=== PATIENT | male | born 1945 | race Caucasian/White ===

== ENCOUNTER 2017-04-04 11:16 | Inpatient (IN) | payer OTHER ==
[~2017-04-04] VITALS: Ht 152.4 cm; Wt 102.1 kg
--- NOTE | ~2017-04-04 | HC ---
[facility] [place] [address] CONSULTATION Name: DEMAR FARMER Room #: 512-P [facility] IN M.R.#: [id number] Admission: 04/04/17 Attend Phys: Nikolai Bright MD Discharge: 04/04/17 Date of : 43 Report #: [id number] THIS REPORT FOR: //name// CC: Nikolai Bright [facility] physician/PCP HISTORY OF PRESENT ILLNESS: The patient is a 71-year-old white male who was transferred to the acute inpatient rehab rice yesterday, April 04, after an extended hospitalization at [facility] after a hemorrhage stroke. He apparently was driving his granddaughter on 03/15/2017, when she notes he was having confusion, weakness, and slurred speech. He was transferred to the emergency room and found to have an intracranial bleed with hypertensive emergency. He was subsequently intubated, noted to have dense right-sided flaccidity with altered mental status. He apparently was having good days and bed days and was starting to work in therapies. He had achieved to the point where he was sitting at the edge of the bed for over 20 minutes with mod assist and he was getting out of bed to the light chair with max assist of 2. He also had started swallowing and was on a pureed honey thickened liquid diet. His family lives in the [facility] area and desire to have the patient transferred to this area for rehabilitation. He was transferred to the acute inpatient rehab rice here at [facility] after an approximately 6-hour car ride. Upon assessment by the hospitalist service right after admission, he was noted to be limited as far as responsiveness with altered mental status. There was concern regarding pneumonia. With his altered mental status, he was kept n.p.o. With continued poor responsiveness, he has now been transferred off the acute inpatient rehab rice and is currently on the monitored bed, being further evaluated by neurology. PAST MEDICAL HISTORY: Includes diabetes mellitus, hypertension, recent intracranial hemorrhage, grade 2 diastolic dysfunction, and moderate aortic stenosis. PAST SURGICAL HISTORY: Includes cholecystectomy. ALLERGIES: No known drug allergies. MEDICATIONS: Please see the current medication listing. Each of these was individually reconciled upon admission. The list includes medications [id number]-anfglch, supplements, etc. SOCIAL HISTORY: He lives in [place] by himself. There are family members including a daughter and granddaughter that will be staying with him. He had been previously independent. FAMILY HISTORY: Significant for CVA in his mother. REVIEW OF SYSTEMS: Unobtainable. [address] [address] CONSULTATION Name: DEMAR FARMER Room #: 512-P [facility] IN M.R.#: [id number] Admission: 04/04/17 Attend Phys: Nikolai Bright MD Discharge: 04/04/17 Date of : 43 Report #: [id number] PHYSICAL EXAMINATION: GENERAL: Revealed a somnolent male, in no obvious distress. He is currently being seen in the progressive care unit. VITAL SIGNS: Temperature 97.7, pulse 77, respirations 16, and blood pressure 139/55. HEENT: His head is turned to the right. NEUROLOGIC: He would not respond to me even with sternal rub, although if I opened his eyes, he would appear to track. He did not verbalize for me. EXTREMITIES: He has functional range of motion of the right upper and right lower extremity, but has flaccid tone. Left upper and left lower extremity revealed more normal tone. I was unable to assess sensation There is no focal calf swelling. After I evaluated him, his family members came in and approached him from the left side and said hello. He then was able to turn his head to the left and look at them. His eyes opened and he was able to verbalize several statements, although I could not make out what he was saying. He was able to hold his daughters left hand and could grasp her with his left hand. ASSESSMENT: 1. Large left intraparenchymal hemorrhagic stroke. 2. Dense right hemiplegia. 3. Dysphagia. He was on purred honey, although he is currently being held to n.p.o. Speech therapy is involved. 4. Mental status changes. He was transferred off the acute inpatient rehab rice and neuro was further assessing at this time. 5. Diabetes mellitus. 6. Hypertension. 7. Grade 2 diastolic dysfunction. 8. Moderate aortic stenosis. PLAN: As above. He is undergoing further evaluation and we will follow along to see how he does. If he demonstrates the tolerance for an acute rehab level of services, we could consider transferring him back up to rehab. At this point, we will need to follow along and see how he does. By: 1110 1249 Nikolai Bright MD /nt
--- NOTE | ~2017-04-04 | D ---
[facility] [place] [address] DISCHARGE SUMMARY Name: DEMAR FARMER Room #: 512-P [facility] IN M.R.#: [id number] Admission: 04/04/17 Attend Phys: Nikolai Bright MD Discharge: 04/04/17 Date of : 43 Report #: [id number] THIS REPORT FOR: //name// CC: Nikolai Bright [facility] physician/PCP DATE OF SERVICE: 04/04/2017 Please see my prior history and physical dictated today. The patient has been discharged off the acute inpatient rehab rice. DISCHARGE DIAGNOSES: Include: 1. Large left intraparenchymal hemorrhage. 2. Dense right hemiplegia. 3. Dysphagia. 4. Mental status changes. 5. Diabetes mellitus. 6. Hypertension. 7. Grade 2 diastolic dysfunction. 8. Moderate aortic stenosis. Discharge medications and activity level, etc. all as per the accepting service. We will be glad to follow along and see how he does with therapies. If he has the appropriate tolerance, he may be a candidate to return back for an acute inpatient rehab stay. We will follow along with you. By: 1114 1151 Nikolai Bright MD /nt
[2017-04-04 15:00] VITALS: BP 123/79
[2017-04-04] MEDS ORDERED: FEVERALL120 MG PO (15:48)
[2017-04-04] MEDS ORDERED: NORVASC2.5 MG PO (15:50)
[2017-04-04] MEDS ORDERED: COREG25 MG PO (16:09)
[2017-04-04] MEDS ORDERED: PEPCID20 MG PO (16:10)
[2017-04-04] MEDS ORDERED: HYDRALAZINE 2525 MG PO ×2 (16:13→16:17)
[2017-04-04] MEDS ORDERED: NOVOLOG100 UNIT/1 SUBQ (16:41)
[2017-04-04 16:55] LABS: HEMATOCRIT 42.5 % (42.0-52.0); HEMOGLOBIN 14.1 gm/dL (14.0-18.0); MCH 29.4 pg (26.0-34.0); MCHC 33.1 g/dL (28.0-37.0); MCV 88.7 fL (80.0-100.0); RBC 4.79 mil/uL (4.50-6.00); RDW 13.7 % (10.5-14.5); WBC 10.2 thou/uL (4.0-11.0)
[2017-04-04 17:01] LABS: ABG SAMPLE TYPE ARTERIAL; BE(vivo) 0.4 mmol/L (-2 to +3); HCO3 24.8 mmol/L (22.0-26.0); LACTATE 0.93 mmol/L (0.5-2.0); O2(CT) 17.7 mL/dL (15.0-23.0); O2Hb 88.8 % (92.0-98.0); PCO2 39.4 mmHg (35.0-45.0); PO2 60.5 mmHg (80.0-100.0); pH 7.417 (7.360-7.450); sO2 91.7 % (92.0-98.0)
[2017-04-04 17:02] LABS: ABG COMMENT NO COMPLICATIONS.; STICK SITE R.RADIAL
[2017-04-04 17:12] LABS: CREATININE 1.3 mg/dL (0.7-1.3); POTASSIUM 4.6 mmol/L (3.5-5.1)
[2017-04-04] MEDS ORDERED: LEVEMIR100 UNIT/1 SUBQ (17:23)
[2017-04-04] MEDS ORDERED: KEPPRA 500 MG500 M1 PO (17:23)
[2017-04-04] MEDS ORDERED: ZESTRIL20 MG PO (17:24)
[2017-04-04] MEDS ORDERED: ALDACTONE25 MG PO (17:25)
[2017-04-05] MEDS ORDERED: TRANSDERM-SCO1 PATC1 TD (02:39)
== END 2017-04-04 23:30 | disposition short-term general hospital (02) | DRG 64 ==
PROVIDERS: Hospitalist
DX: I61.9 Nontraumatic intracerebral hemorrhage, unspecified (principal); G93.40 Encephalopathy, unspecified; G81.91 Hemiplegia, unspecified affecting right dominant side; E11.9 Type 2 diabetes mellitus without complications; I10 Essential (primary) hypertension; R13.10 Dysphagia, unspecified; I35.0 Nonrheumatic aortic (valve) stenosis; Z90.49 Acquired absence of other specified parts of digestive tract; Z87.442 Personal history of urinary calculi; Z82.3 Family history of stroke
CPT/HCPCS: 10112

== ENCOUNTER 2017-04-04 23:34 | Inpatient (IN) | payer OTHER ==
[~2017-04-04] VITALS: Ht 167.6 cm; Wt 102.3 kg
--- NOTE | ~2017-04-04 | 2DMMODE ---
[facility] [address] [facility] [place] [address] 2 D/M-MODE ECHOCARDIOGRAM Name: DEMAR FARMER Room #: 213-P ADM IN M.R.#: [id number] Admission: 04/04/17 Attend Phys: Jelani Forrest, Discharge: Date of : 43 Date of Service: 04/07/17 0848 Report #: [id number] THIS REPORT FOR: //name// APPROVED REPORT Study performed: 04/07/2017 06:34:47 EXAM: Comprehensive 2D, Doppler, and color-flow Echocardiogram Patient Location: Bedside Room #: 213 Status: routine Other Information Study Quality: Adequate Technically limited study due to no patient participation, limited mobility and body habitus. Indications Cardiomegaly, rule out CHF. Hx: CVA, DM, HTN 2D Dimensions RVDd: 27.03 mm LVEF(%): 54.02 (>50%) IVSd: 15.41 (7-11mm) LVOT Diam: 22.42 (18-24mm) LVDd: 43.88 mm PWd: 13.74 (7-11mm) Ascending Ao: 38.26 (22-36mm) LVDs: 31.71 (25-40mm) Aortic Root: 31.30 mm Mcdonough's LVEF: 54.02 % Volumes Left Atrial Volume (Systole) Single Plane 4CH: 62.12 mL Single Plane 2CH: 61.50 mL LA ESV Index: 32.00 mL/m2 Aortic Valve AoV Peak Jackson.: 2.51 m/s AO Peak Gr.: 25.27 mmHg AO Mean Gr.: 15.21 mmHg AO V2 Mean: 1.91 m/s AO V2 VTI: 45.67 cm Mitral Valve E/A Ratio: 0.8 MV Decel. Time: 103.72 ms MV E Max Jackson.: 1.01 m/s [facility] [place] [address] 2 D/M-MODE ECHOCARDIOGRAM Name: DEMAR FARMER Room #: 213-P [facility] IN .R.#: [id number] Admission: 04/04/17 Attend Phys: Jelani Forrest, Discharge: Date of : 43 Date of Service: 04/07/17 0848 Report #: [id number] A Jackson.: 1.24 m/s MV PHT: 30.08 ms Pulmonary Valve PV Peak Jackson.: 1.29 m/s PV Peak Gr.: 6.68 mmHg Left Ventricle The left ventricle is normal size. Systolic anterior motion of the mitral valve causing a gradient. Peak velocity is noted to be 4.3m/s with and PPG of 75mmHg. There is normal LV segmental wall motion. Moderate concentric left ventricular hypertrophy. Left ventricular systolic function is hyperdynamic LVEF is 65-70%. Grade I - abnormal relaxation pattern. Right Ventricle The right ventricle is normal size. The right ventricular systolic function is normal. Atria Left atrium is mildly dilated. The right atrium size is normal. Aortic Valve Aortic valve is calcified. No aortic regurgitation is present. Probable mild aortic stenosis (Peak gradient 21, mean 10). Mitral Valve Mitral valve leaflets are mildly calcified. Mild mitral annular calcification. Probable systolic anterior motion of the mitral valve with LVOT (70mmHg) gradient. Moderate mitral regurgitation. No evidence of mitral valve stenosis. Tricuspid Valve The tricuspid valve is normal in structure. There is no tricuspid valve regurgitation noted. Pulmonic Valve Pulmonic valve is not well visualized. Great Vessels The aortic root is normal in size. The ascending aorta is mildly dilated. IVC is not well visualized. Pericardium There is no pericardial effusion. [address] [address] 2 D/M-MODE ECHOCARDIOGRAM Name: DEMAR FARMER Room #: 213-P [facility] IN .#: [id number] Admission: 04/04/17 Attend Phys: Jelani Forrest, Discharge: Date of : 43 Date of Service: 04/07/17 0848 Report #: [id number] <Conclusion> Left ventricular systolic function is hyperdynamic There is normal LV segmental wall motion. Moderate concentric left ventricular hypertrophy. LVEF is 65-70%. Aortic valve is calcified. Probable mild aortic stenosis (Peak gradient 21, mean 10). Mild mitral annular calcification. Probable systolic anterior motion of the mitral valve with LVOT (70mmHg) gradient. Moderate mitral regurgitation. Pulmonary artery pressure could not be reliably ascertained There is no pericardial effusion. <ELECTRONICALLY SIGNED> By: Orlando Ferreira MD, [facility] 04/07/17847 7 7 Orlando Ferreira MD, FAC /INF
--- NOTE | ~2017-04-04 | EEG ---
[facility] [place] [address] ELECTROENCEPHALOGRAM Name: DEMAR FARMER Room #: 203-P ADM IN M.R.#: [id number] Admission: 04/04/17 Attend Phys: Jelani Forrest MD Discharge: Date of : 43 Report #: [id number] THIS REPORT FOR: //name// CC: Jelani Forrest [facility] physician/PCP DATE OF SERVICE: 04/05/2017 This patient is being evaluated for altered mental status. EEG was done by placing the electrodes by standard 10-20 system of electrode placement. Both referential and sequential montages were used for recording. Background activity in this patient's EEG is about 8 Hz and 15 microvolts. This is a symmetrical activity. It is intermixed with theta range slowing on both sides. Photic stimulation is unremarkable. IMPRESSION: This patient's EEG is intermixed with theta range slowing on both sides. That is a nonspecific abnormality, which can occur with encephalopathy, effect of psychotropic medication, dementia, etc. Clinical correlation is recommended. Thank you very much for this referral. <ELECTRONICALLY SIGNED> By: Jose Terrazas MD 04/10/17 1246 1826 1847 Jose Terrazas MD /nt
--- NOTE | ~2017-04-04 | H ---
[facility] [place] [address] HISTORY AND PHYSICAL Name: DEMAR FARMER Room #: 203-P [facility] IN M.R.#: [id number] Admission: 04/04/17 Attend Phys: Jelani Forrest MD Discharge: 04/13/17 Date of : 43 Report #: [id number] THIS REPORT FOR: //name// CC: Jelani Forrest [facility] physician/PCP DATE OF SERVICE: 04/04/2017 ATTENDING PHYSICIAN: Moises Frazier M.D. PRIMARY CARE PHYSICIAN: Unknown. CHIEF COMPLAINT: Altered mental status. HISTORY OF PRESENT ILLNESS: The patient is a 71-year-old male who was just transferred to acute rehabilitation at [facility] on April 04 after an extended hospitalization at [facility] after a hemorrhagic stroke. Apparently on 03/15/2017, he was driving with his granddaughter when she noticed he was having confusion, weakness and slurred speech. He was transferred to the ER and was found to have an intracranial bleed with hypertensive emergency. He subcutaneously was intubated and was seen by pulmonary, neurosurgery and cardiology. He does have residual right-sided flaccidity and altered mental status. According to his family, he had been having good and bad days and sometimes would be very lethargic at times but apparently was back to starting to work with therapies. He did have a swallow evaluation at one point there, which showed deep penetration with nectar-thick consistency. There was no aspiration identified and he was placed on a pureed diet with honey liquids. When he arrived here earlier during the day, he was quite lethargic after his traveling from [place]. Once the shift nurse manager was on, she could not arouse him in any way including to sternal rub and this was apparently different from his baseline; therefore, he was transferred back to inpatient at [facility]. There are no reports that he has been having any fevers. He remains very somnolent and unable to answer any questions and will not follow any commands. He did moan when being transferred from bed to bed. A stat head CT was done, which did not show any acute changes but showed that his left intraparenchymal hemorrhage was stable. PAST MEDICAL HISTORY: Diabetes, hypertension, recent intracranial hemorrhage, grade 2 diastolic dysfunction and moderate aortic stenosis. PAST SURGICAL HISTORY: Cholecystectomy. ALLERGIES: No known drug allergies. HOME MEDICATIONS: Hydralazine 25 mg p.o. q. 6 hours p.r.n. and 50 mg t.i.d., carvedilol 25 mg b.i.d., amlodipine 7.5 mg q. 8 hours, lisinopril 20 mg b.i.d., [facility] [address] [place] [address] HISTORY AND PHYSICAL Name: DEMAR FARMER Room #: 203-P [facility] IN M.R.#: [id number] Admission: 04/04/17 Attend Phys: Jelani Forrest MD Discharge: 04/13/17 Date of : 43 Report #: [id number] spironolactone 12.5 mg b.i.d., Tylenol p.r.n., Keppra 500 mg b.i.d., scopolamine patch q. 72 hours, famotidine 20 mg b.i.d., Levemir insulin 12 units at bedtime and NovoLog insulin sliding scale. SOCIAL HISTORY: This is unknown. Apparently, he was in [place] visiting his daughter when his stroke occurred. His records showed that he does have a history of tobacco abuse but no drug use. He is a full code. FAMILY HISTORY: Significant for CVA in his mother. REVIEW OF SYSTEMS: According to the transfer records, he did have an echo in [place] as well, which showed a normal EF of greater than 70% with moderate concentric hypertrophy of the left ventricle. There was pseudonormalization and relaxed pattern with grade 2 diastolic dysfunction. There was moderate aortic valve stenosis and jyhe-pm-oonrxybs mitral valve regurgitation. His Dopplers of lower extremities were negative for DVT and video swallow was done as above. PHYSICAL EXAMINATION: GENERAL: The patient is a somnolent male, in no acute distress. VITAL SIGNS: Temperature is 36.9, heart rate 85, respirations 16, blood pressure is 141/82 and oxygen 91% on room air. HEENT: PERRLA. The patient will not track with his eyes. Sclerae are nonicteric. Oral mucosa is pink and dry. He has a somewhat brownish coating on his tongue. NECK: Supple. No JVD noted. CARDIAC: Normal S1 and S2 with a 3/6 systolic ejection murmur. RESPIRATORY: Breath sounds are clear, bilateral upper lobes. He is diminished in both bases. Breathing is nonlabored. He is snoring. ABDOMEN: Obese, round, nontender and nondistended with positive bowel sounds. VASCULAR: 1+ bilateral lower extremity edema. Pedal pulses are 2+. NEUROLOGICAL: The patient is somnolent and unarousable. He will open his eyes to sound or pain. He will not track with his eyes when they are opened. He is nonverbal. He will not answering any questions. He is completely flaccid on the right side, he did have some withdrawal to pain on his left arm and leg. SKIN: Intact except for a scabbed over area on his left forearm, which looks like a recent IV infiltration. LABORATORY DATA AND DIAGNOSTICS: Labs drawn on April 04 here show a WBC of 10.2, hemoglobin 14.1 and platelets 185. Sodium 140, potassium 4.6, BUN 30, creatinine 1.3, glucose 174 and ammonia was 25. ABG showed a pH of 7.42, pCO2 of 39.4, pO2 of 60.5, bicarbonate 24.8 and lactate is 0.93. RADIOLOGICAL DATA: Chest x-ray showed a right upper lobe and left lower lobe infiltrate. CT of the head showed a stable intraparenchymal hemorrhage consistent with hypertensive hemorrhagic infarct. There was some edema with mass effect on the left lateral ventricle but no herniation. [facility] [address] [place] [address] HISTORY AND PHYSICAL Name: DEMAR FARMER Room #: 203-P [facility] IN .R.#: [id number] Admission: 04/04/17 Attend Phys: Jelani Forrest MD Discharge: 04/13/17 Date of : 43 Report #: [id number] ASSESSMENT AND PLAN: 1. Altered mental status. This may be due to his recent travel from [place] yesterday as well as due to his recent stroke as he may be having some good and bad days. CT of the head did not show any new findings. So far his initial workup did reveal some possible pneumonia, which we will be treating as well. Since he is not alert and follow any commands, we will keep him n.p.o. until speech is able to see him. There has not been any seizure activity seen but this may also be a concern since we will consult neurology. 2. Pneumonia. He is currently afebrile without any leukocytosis. There is concern for aspiration since this is on the right side. We will add Zosyn and check blood cultures and await further speech therapy recommendations. Start some breathing treatments. 3. Recent hemorrhage cerebrovascular accident. Again, neurology will be consulted. We will keep him n.p.o. He will still need to have extensive physical therapy, occupational therapy and speech therapy and acute rehabilitation at some point. 4. Diabetes, add sliding scale insulin with Accu-Chek q. 6 hours while n.p.o. 5. Hypertension. Blood pressure is stable. We will add hydralazine p.r.n. while he is n.p.o. and hold home p.o. medications. 6. Recent acute respiratory failure status plus intubation. He is maintaining his oxygen saturation. Continue to monitor. 7. Grade 2 diastolic dysfunction with moderate aortic stenosis. No signs of acute fluid overload. Continue to monitor. 8. Deep venous thrombosis prophylaxis, place sequential compression devices. We will continue to follow the patient closely throughout the hospitalization and make changes based on clinical status. <ELECTRONICALLY SIGNED> By: RODRÍGUEZ Holloway 04/14/17 0442 [id number] 0823 RODRÍGUEZ Holloway /nt
[~2017-04-04 23:34] MED LIST: ALDACTONE25 MG PO; COREG25 MG PO; FEVERALL120 MG PO; HYDRALAZINE 2525 MG PO; KEPPRA 500 MG500 M1 PO; LEVEMIR100 UNIT/1 SUBQ; NORVASC2.5 MG PO; NOVOLOG100 UNIT/1 SUBQ; PEPCID20 MG PO; ZESTRIL20 MG PO
[2017-04-04 23:57] VITALS: BP 141/82
[2017-04-05 02:31] LABS: URINE BILIRUBIN NEGATIVE (Negative); URINE BLOOD NEGATIVE (Negative); URINE COLOR YELLOW; URINE GLUCOSE-RANDOM* NEGATIVE (Negative); URINE KETONES NEGATIVE (Negative); URINE NITRITE NEGATIVE (Negative); URINE PROTEIN (DIPSTICK) 1+ (Negative); URINE SPECIFIC GRAVITY >= 1.030 (1.003-1.035)
[2017-04-05] MEDS ORDERED: TRANSDERM-SCO1 PATC1 TD (02:39)
[2017-04-05 02:42] LABS: BACTERIA None Seen /HPF (None Seen); CASTS None Seen /LPF (None Seen); CRYSTALS None Seen /LPF (None Seen); FINE GRANULAR CASTS 0-3 Few /LPF (None Seen); HYALINE CASTS 0-3 Few /LPF (None Seen); SQUAMOUS None Seen /LPF (0-3); URINE RBC None Seen /HPF (0-2); URINE WBC 0-5 Rare /HPF (0-5)
[2017-04-05 04:26] VITALS: BP 127/73
[2017-04-05 07:23] LABS: TC:HDL 6.1 Ratio (Not establshd)
[2017-04-05 07:56] VITALS: BP 139/55
[2017-04-05 08:14] LABS: FOLIC ACID 12.7 ng/mL (8.6-58.9)
[2017-04-05 13:07] VITALS: BP 158/87
[2017-04-05 14:11] LABS: FREE T4 1.41 ng/dL (0.82-1.77)
[2017-04-05 15:16] VITALS: BP 144/78
[2017-04-05 19:40] VITALS: BP 154/96
[2017-04-06 03:51] VITALS: BP 173/107
[2017-04-06 05:10] LABS: GLYCOHEMOGLOBIN (HGB A1C) 7.7 % (4.8-5.6)
[2017-04-06 06:11] LABS: HEMATOCRIT 42.5 % (42.0-52.0); HEMOGLOBIN 14.1 gm/dL (14.0-18.0); MCH 28.9 pg (26.0-34.0); MCHC 33.1 g/dL (28.0-37.0); MCV 87.5 fL (80.0-100.0); RBC 4.86 mil/uL (4.50-6.00); RDW 13.7 % (10.5-14.5); WBC 12.6 thou/uL (4.0-11.0)
[2017-04-06 06:30] LABS: ALBUMIN 2.7 g/dL (3.4-5.0); CREATININE 1.4 mg/dL (0.7-1.3); POTASSIUM 4.4 mmol/L (3.5-5.1); TOTAL PROTEIN 6.3 g/dL (6.4-8.2)
[2017-04-06 07:19] VITALS: BP 249/117
[2017-04-06 08:30] VITALS: BP 140/95
[2017-04-06 12:22] VITALS: BP 202/117
[2017-04-06 15:35] VITALS: BP 193/101
[2017-04-06 20:08] VITALS: BP 162/96
[2017-04-07 04:08] VITALS: BP 132/92
[2017-04-07 06:54] LABS: HEMATOCRIT 39.1 % (42.0-52.0); HEMOGLOBIN 12.9 gm/dL (14.0-18.0); MCH 28.9 pg (26.0-34.0); MCHC 33.1 g/dL (28.0-37.0); MCV 87.4 fL (80.0-100.0); RBC 4.47 mil/uL (4.50-6.00); RDW 14.2 % (10.5-14.5); WBC 11.8 thou/uL (4.0-11.0)
[2017-04-07 07:02] LABS: CALCIUM 8.9 mg/dL (8.5-10.1); CREATININE 2.1 mg/dL (0.7-1.3); POTASSIUM 3.7 mmol/L (3.5-5.1)
[2017-04-07 07:50] VITALS: BP 194/104
[2017-04-07 11:44] VITALS: BP 133/69
[2017-04-07 13:13] LABS: ALPHA TOCOPHEROL 12.4 mg/L (5.3-17.5)
[2017-04-07 16:09] VITALS: BP 143/93
[2017-04-07 19:51] VITALS: BP 143/78
[2017-04-07 23:50] VITALS: BP 142/75
[2017-04-08 03:57] VITALS: BP 124/60
[2017-04-08 04:18] LABS: HEMOGLOBIN 11.7 gm/dL (14.0-18.0); MCH 29.4 pg (26.0-34.0); MCHC 33.4 g/dL (28.0-37.0); MCV 88.1 fL (80.0-100.0); RBC 3.97 mil/uL (4.50-6.00); RDW 13.9 % (10.5-14.5); WBC 8.6 thou/uL (4.0-11.0)
[2017-04-08 04:48] LABS: CALCIUM 8.3 mg/dL (8.5-10.1); CREATININE 1.6 mg/dL (0.7-1.3); POTASSIUM 3.4 mmol/L (3.5-5.1); TOTAL BILIRUBIN 0.7 mg/dL (<0.1-1.0); TOTAL PROTEIN 5.6 g/dL (6.4-8.2)
[2017-04-08 07:43] VITALS: BP 128/55
[2017-04-08 11:19] VITALS: BP 166/84
[2017-04-08 11:50] VITALS: BP 153/80
[2017-04-08 15:08] VITALS: BP 159/81
[2017-04-08 20:06] VITALS: BP 157/98
[2017-04-09 04:43] VITALS: BP 169/91
[2017-04-09 06:09] LABS: HEMATOCRIT 35.8 % (42.0-52.0); HEMOGLOBIN 12.1 gm/dL (14.0-18.0); MCH 29.3 pg (26.0-34.0); MCHC 33.8 g/dL (28.0-37.0); MCV 86.5 fL (80.0-100.0); RBC 4.14 mil/uL (4.50-6.00); RDW 13.9 % (10.5-14.5); WBC 8.4 thou/uL (4.0-11.0)
[2017-04-09 06:19] LABS: CALCIUM 8.4 mg/dL (8.5-10.1); CREATININE 1.4 mg/dL (0.7-1.3); POTASSIUM 3.2 mmol/L (3.5-5.1)
[2017-04-09 07:14] VITALS: BP 143/98
[2017-04-09 11:37] VITALS: BP 153/90
[2017-04-09 20:32] VITALS: BP 128/89
[2017-04-10] VITALS (9 sets, daily range): BP systolic 137–195; BP diastolic 77–117
[2017-04-10 06:09] LABS: HEMATOCRIT 36.9 % (42.0-52.0); HEMOGLOBIN 12.5 gm/dL (14.0-18.0); MCH 29.3 pg (26.0-34.0); MCHC 33.8 g/dL (28.0-37.0); MCV 86.8 fL (80.0-100.0); RBC 4.25 mil/uL (4.50-6.00); WBC 8.7 thou/uL (4.0-11.0)
[2017-04-10 06:30] LABS: ALBUMIN 2.2 g/dL (3.4-5.0); CALCIUM 8.6 mg/dL (8.5-10.1); CREATININE 1.3 mg/dL (0.7-1.3); PHOSPHORUS 2.2 mg/dL (2.5-4.9); POTASSIUM 3.1 mmol/L (3.5-5.1)
[2017-04-11] VITALS (8 sets, daily range): BP systolic 149–184; BP diastolic 86–110
[2017-04-11 05:24] LABS: HEMATOCRIT 37.6 % (42.0-52.0); HEMOGLOBIN 12.9 gm/dL (14.0-18.0); MCH 29.3 pg (26.0-34.0); MCHC 34.2 g/dL (28.0-37.0); MCV 85.8 fL (80.0-100.0); RBC 4.39 mil/uL (4.50-6.00); RDW 14.2 % (10.5-14.5)
[2017-04-11 05:38] LABS: ALBUMIN 2.3 g/dL (3.4-5.0); CALCIUM 8.9 mg/dL (8.5-10.1); CREATININE 1.1 mg/dL (0.7-1.3); PHOSPHORUS 2.5 mg/dL (2.5-4.9); POTASSIUM 3.3 mmol/L (3.5-5.1)
[2017-04-11 09:26] LABS: ABG SAMPLE TYPE ARTERIAL; BE(vivo) 1.4 mmol/L (-2 to +3); HCO3 24.1 mmol/L (22.0-26.0); LACTATE 1.09 mmol/L (0.5-2.0); O2(CT) 17.2 mL/dL (15.0-23.0); PCO2 32.3 mmHg (35.0-45.0); PO2 61.8 mmHg (80.0-100.0); STICK SITE L.BRACHIAL; pH 7.491 (7.360-7.450); sO2 93.6 % (92.0-98.0); tCO2 25.1 mmol/L (24.0-30.0)
[2017-04-12 04:53] VITALS: BP 143/76
[2017-04-12 04:55] LABS: ABSOLUTE NEUTROPHILS 5.3 thou/uL (1.4-8.2); BASOPHILS 0.5 % (0.0-2.0); HEMATOCRIT 35.2 % (42.0-52.0); LYMPHOCYTES 16.7 % (24.0-44.0); MCH 29.5 pg (26.0-34.0); MCHC 34.1 g/dL (28.0-37.0); MCV 86.5 fL (80.0-100.0); MONOCYTES 7.2 % (1.0-8.0); PLATELET COUNT 177 thou/uL (150-400); POLYS 63.6 % (36.0-66.0); RBC 4.07 mil/uL (4.50-6.00); RDW 13.8 % (10.5-14.5); WBC 8.4 thou/uL (4.0-11.0)
[2017-04-12 05:07] LABS: MANUAL DIFF NO
[2017-04-12 05:16] LABS: CALCIUM 8.6 mg/dL (8.5-10.1); CREATININE 1.2 mg/dL (0.7-1.3); MAGNESIUM 1.8 mg/dL (1.8-2.4); POTASSIUM 3.5 mmol/L (3.5-5.1)
[2017-04-12 07:20] VITALS: BP 158/98
[2017-04-12 11:40] VITALS: BP 158/98
[2017-04-12 15:50] VITALS: BP 196/117
[2017-04-12 19:21] VITALS: BP 165/112
[2017-04-12 21:53] VITALS: BP 125/74
[2017-04-13 03:34] VITALS: BP 148/85
[2017-04-13 08:25] VITALS: BP 156/88
[2017-04-13 11:34] VITALS: BP 149/91
[2017-04-13] MEDS ORDERED: DUONEB 2.5-0.5 M3 ML INH (13:59)
[2017-04-13] MEDS ORDERED: LIPITOR10 MG PO (13:59)
[2017-04-13] MEDS ORDERED: AMOX TR-K CLV1 EAC3 PO (14:04)
[2017-04-13] MEDS ORDERED: NORVASC10 MG PO (14:04)
[2017-04-13] MEDS ORDERED: LEVEMIR100 UNIT/1 SUBQ (14:18)
== END 2017-04-13 19:56 | DRG 177 ==
LOC: 2N 23:34
PROVIDERS: Hospitalist; Internal Medicine; Nurse Practitioner Acute Care; Psychiatry & Neurology Neurology
PROC: 02HV33Z Insertion of Infusion Device into Superior Vena Cava, Percutaneous Approach (ICD-10-PCS; principal; 2017-04-05)
DX: J69.0 Pneumonitis due to inhalation of food and vomit (principal); G93.41 Metabolic encephalopathy; N17.9 Acute kidney failure, unspecified; G81.91 Hemiplegia, unspecified affecting right dominant side; I16.1 Hypertensive emergency; I62.9 Nontraumatic intracranial hemorrhage, unspecified; E11.9 Type 2 diabetes mellitus without complications; I10 Essential (primary) hypertension; I35.0 Nonrheumatic aortic (valve) stenosis; R29.810 Facial weakness; R47.81 Slurred speech; R74.0 Nonspecific elevation of levels of transaminase and lactic acid dehydrogenase [LDH]; E87.6 Hypokalemia; E83.42 Hypomagnesemia; Z90.49 Acquired absence of other specified parts of digestive tract; Z79.899 Other long term (current) drug therapy; Z87.442 Personal history of urinary calculi; Z87.891 Personal history of nicotine dependence; Z82.3 Family history of stroke; Z79.4 Long term (current) use of insulin
CPT/HCPCS: 10081; 27000

== ENCOUNTER 2017-04-13 14:03 | Inpatient (IN) | payer OTHER ==
[~2017-04-13] VITALS: Ht 182.9 cm; Wt 93.8 kg
--- NOTE | ~2017-04-13 | H ---
[facility] [place] [address] HISTORY AND PHYSICAL Name: DEMAR FARMER Room #: 504-1 ADM IN M.R.#: [id number] Admission: 04/13/17 Attend Phys: Nikolai Bright MD Discharge: Date of : 43 Report #: [id number] THIS REPORT FOR: //name// CC: Nikolai Bright [facility] physician/PCP DATE OF SERVICE: 04/13/2017 HISTORY OF PRESENT ILLNESS: The patient has been readmitted to the acute in-hospital inpatient rehabilitation rice. He is a 71-year-old white male, who was originally transferred to the acute inpatient rehabilitation rice on April 04, after an extended hospitalization at [place] in [place] for hemorrhagic stroke. He was noted to have an intracranial bleed with hypertensive emergency, was intubated, noted to have dense right-sided flaccidity with altered mental status. He was noted to have very limited responsiveness after the long trip and arrival to the acute inpatient rehabilitation rice and ended up being transferred off secondary to mental status changes and further decline. CT of the head did not show any new findings. He was noted to have pneumonia, afebrile without leukocytosis and was started on Zosyn. Neurology was involved with noted encephalopathy, as a diagnosis, etiology unclear. He was closely monitored in the progressive care unit. He has the large subacute hemorrhage, left basal ganglia and surrounding white matter with no hydrocephalus, mild to moderate shift left to right measuring 1.3 cm. Again, neurology has been involved. He does have significant dysphagia. He had EEG showed some nonspecific findings that can occur with encephalopathy. He continues with severe aphasia, but his mental status did improve overall. He was working in therapies showing some increased motivation. He is frustrated, but again was able to work on some bed mobility and sitting balance and working with occupational therapy. He has the dense hemiplegia and is at a low level, but is more alert overall and working more in therapies. He has now been readmitted for an acute in-hospital inpatient rehabilitation stay. PAST MEDICAL HISTORY: Includes diabetes mellitus, hypertension, recent intracranial hemorrhage, grade 2 diastolic dysfunction, moderate aortic stenosis. PAST SURGICAL HISTORY: Cholecystectomy. MEDICATIONS: Please see the full medication listing. Each of these was individually reconciled upon the admission to the acute inpatient rehabilitation rice. ALLERGIES: No known drug allergies. SOCIAL HISTORY: Lives in [place] by himself. There are family members including a daughter and a granddaughter that are planning on staying with him. [address] [address] HISTORY AND PHYSICAL Name: DEMAR FARMER Room #: 504-1 [facility] IN [facility].#: [id number] Admission: 04/13/17 Attend Phys: Nikolai Bright MD Discharge: Date of : 43 Report #: [id number] He had been previously independent. FAMILY HISTORY: Significant for CVA in his mother. REVIEW OF SYSTEMS: Unobtainable. PHYSICAL EXAMINATION: GENERAL: A 71-year-old overweight white male, sleepy, but does respond. He will open his eyes and would attempt to track. He does some verbalizations, but he is frustrated, as it is not understandable. VITAL SIGNS: His temperature is 98.3, pulse 79, respirations 16, blood pressure 148/89. HEENT: Appeared to be benign. CHEST: Sounded clear to auscultation. CARDIOVASCULAR: Regular rate and rhythm. ABDOMEN: Obese, bowel sounds positive, nontender. GENITOURINARY AND RECTAL: Deferred. EXTREMITIES: He has functional range of motion of the right upper and right lower extremity, but has flaccid tone. Left upper and left lower extremity revealed more normal tone. I was unable to adequately assess sensation. No focal calf swelling. Functionally, he is mod assist, supine to sit. Transfers are max assist with sit to stand, max assist of 2, bed to chair utilizing stand pivot. As far as his diet, he does have moderate dysphagia and is on a pureed diet with honey thickened liquids. ASSESSMENT AND PLAN: A 71-year-old white male admitted with the following problem list: 1. Large left intraparenchymal hemorrhagic stroke. 2. Dense right hemiplegia. 3. Dysphagia. Continuing on pureed with honey thickened liquids. 4. Encephalopathy that appears to be improving. 5. Severe aphasia with an expressive and receptive component. 6. Diabetes mellitus. 7. Hypertension. 8. Grade 2 diastolic dysfunction. 9. Moderate aortic stenosis. 10. Recent aspiration pneumonia. 11. Hypertension. 12. Acute renal insufficiency. This appears improved. PLAN: The patient is admitted for acute in-hospital inpatient rehabilitation. From a postadmission physician evaluation perspective, there are no relevant changes since the preadmission screening. Please see the above review of prior and current medical and functional conditions and comorbidities. Please see the [facility] [address] [place] [address] HISTORY AND PHYSICAL Name: DEMAR FARMER Room #: 504-1 ADM IN M.R.#: [id number] Admission: 04/13/17 Attend Phys: Nikolai Bright MD Discharge: Date of : 43 Report #: [id number] patient's previous and current functional status. He premorbidly was independent, ambulatory in the community. Risk of complications include his multiple medical comorbidities. Initial plan of care involves the interdisciplinary acute inpatient rehabilitation program with the goal of maximizing his functional independence, so that he can hopefully return back to his prior living situation. There is a family member that is talked about staying with him. Prognosis is reasonably good with estimated length of stay probably fairly long as he is at a very low functional level. He will need to be put on a low endurance program. Potential barriers would include his multiple medical comorbidities and decreased functional status. The patient meets diagnostic criteria for an acute in-hospital inpatient rehabilitation stay. He meets medical necessity criteria. He does have the tolerance for therapies and discussion was checked with the therapist on the acute hospital side prior to bringing him to rehab in assessment in this regard. We will put on a low endurance program, but it is felt that he should be able to tolerate therapy program on acute. He does have appropriate discharge goals back to the home setting. <ELECTRONICALLY SIGNED> By: Nikolai Bright MD 04/26/17 1515 [id number] Nikolia Bright MD /nt
--- NOTE | ~2017-04-13 | HC ---
[facility] [address] [place] [address] CONSULTATION Name: DEMAR FARMER Room #: 504-1 ADM IN M.R.#: [id number] Admission: 04/13/17 Attend Phys: Nikolai Bright MD Discharge: Date of : 43 Report #: [id number] THIS REPORT FOR: //name// CC: Nikolai Bright FAM physician/PCP DATE OF SERVICE: 04/18/2017 AGE: 71. ATTENDING PHYSICIAN: Nikolai Bright M.D. AIRCRAFT MECHANIC: Fco Lopez, PhD CLINICAL PRESENTATION: The patient is a 71-year-old male admitted to the [facility] rehabilitation unit for a comprehensive inpatient rehabilitation program to improve functional mobility, activities of daily living and self-care and mental status secondary to a large left intraparenchymal hemorrhagic stroke. Additionally, his assessment includes a dense right hemiplegia, dysphagia, encephalopathy, severe aphasia with expressive and receptive component, diabetes mellitus, hypertension, grade 2 diastolic dysfunction, moderate aortic stenosis, recent aspiration pneumonia, hypertension and acute renal insufficiency. A complete description of his medical condition and history and medications can be found in his medical record. Neuropsychological consultation was requested to provide assistance in the assessment of cognitive and emotional status and to provide recommendations and services. The patient had been living independently prior to his stroke. He was active and driving. He had recently driven to [place] to help a granddaughter move to the [place] area. He had sustained his stroke on his return trip through [place] and was initially taken to a hospital in that community. He has an adopted daughter that lives in the [place] area. The patient is unable to describe any aspect to his background and history at this time. I attempted to reach family, but they were unavailable. I will continue to acquire additional information about his prior level of functioning and prior history. TECHNIQUES UTILIZED: Clinical interview, review of medical records, staff consultation and behavioral observation, mini mental status exam 2 standard version. EXAMINATION FINDINGS: The patient was interviewed while he was in his bed. He presents with a fluent aphasia; however, it is primarily a repetition. Auditory comprehension and expression is severely impaired. He did not appear restless or fidgety. He did not appear to be in pain. He lacks ability to follow 1-step commands as auditory comprehension is severely impaired. [address] [address] CONSULTATION Name: DEMAR FARMER Room #: 504-1 ADM IN M.R.#: [id number] Admission: 04/13/17 Attend Phys: Nikolai Bright MD Discharge: Date of : 43 Report #: [id number] DIAGNOSTIC IMPRESSION: Neurocognitive disorder due to vascular disease, extent to be determined, severe at this time. RECOMMENDATIONS: The patient will very likely require 24-hour care that includes supervision for the management of medications, nutrition and finances. Her hemorrhagic stroke can show a good improvement as the hemorrhage resolves. Continued following of neurocognitive status is indicated along with family education. Thank you very much for allowing me to provide the consultation on this patient. <ELECTRONICALLY SIGNED> By: Fco Lopez, PhD 04/30/17 1526 [id number] Fco Lopez, PhD /nt
--- NOTE | ~2017-04-13 | PLAN ---
[facility] [place] [address] REHAB UNIT PLAN OF CARE Name: DEMAR FARMER Room #: 504-1 ADM IN M.R.#: [id number] Admission: 04/13/17 Attend Phys: Nikolai Bright MD Discharge: Date of : 43 Report #: [id number] THIS REPORT FOR: //name// CC: Nikolai Bright [facility] physician/PCP The overall plan of care is based on the preadmission screen, post-admission physician evaluation and information garnered from therapy assessments. He has been transferring with max assist in physical therapy. He has been nonambulatory. Bed mobility is max assist. Sit to supine is mod assist. In occupational therapy, he continues with the evaluations. He has moderate assistance for grooming, dependent for bathing. In speech therapy, he has [id number] comprehensive deficits, severe expressive deficits and is on a pureed diet with honey thickened liquids. 1. Estimated length of stay will be several weeks as the patient is at a low level. 2. Medical prognosis is fair to good. He has had a large stroke. 3. Anticipated interventions includes the interdisciplinary acute inpatient rehabilitation team with PT, OT and speech, rehab nursing to assist regarding bowel and bladder issues, skin care prophylaxis education. The case management and rehab psychology team members are involved as well. We will have the multiple aerodynamic consultant physicians that are all following with his multiple medical comorbidities. 4. Anticipated functional outcomes would be to maximize his basic transfers and mobility, ADLs, communication and diet to hopefully return back home. 5. Discharge destination, he does have a supportive family and there is a daughter and granddaughter that are planning on staying with him. 6. Expected therapy by discipline includes PT, OT and speech 1 hour per day each five days a week throughout the duration of the acute inpatient rehabilitation stay. <ELECTRONICALLY SIGNED> By: Nikolai Bright MD 04/26/17 1515 [id number] Nikolai Bright MD /nt
[~2017-04-13 14:03] MED LIST changes: +DUONEB 2.5-0.5 M3 ML INH; +LIPITOR10 MG PO; +TRANSDERM-SCO1 PATC1 TD
[2017-04-13] MEDS ORDERED: AMOX TR-K CLV1 EAC3 PO (14:04)
[2017-04-13] MEDS ORDERED: NORVASC10 MG PO (14:04)
[2017-04-13] MEDS ORDERED: LEVEMIR100 UNIT/1 SUBQ (14:18)
[2017-04-13 19:59] VITALS: BP 150/74
[2017-04-14] VITALS (8 sets, daily range): BP systolic 127–184; BP diastolic 79–101
[2017-04-14 08:12] LABS: HEMATOCRIT 38.4 % (42.0-52.0); HEMOGLOBIN 13.1 gm/dL (14.0-18.0); MCH 29.2 pg (26.0-34.0); MCV 85.9 fL (80.0-100.0); RBC 4.47 mil/uL (4.50-6.00); RDW 13.7 % (10.5-14.5); WBC 8.3 thou/uL (4.0-11.0)
[2017-04-14 08:28] LABS: CALCIUM 8.8 mg/dL (8.5-10.1); CREATININE 1.2 mg/dL (0.7-1.3); POTASSIUM 3.3 mmol/L (3.5-5.1)
[2017-04-15] VITALS (9 sets, daily range): BP systolic 150–205; BP diastolic 61–110
[2017-04-16 05:23] VITALS: BP 145/81
[2017-04-16 10:34] LABS: ABSOLUTE NEUTROPHILS 5.5 thou/uL (1.4-8.2); BASOPHILS 0.7 % (0.0-2.0); EOSINOPHILS 5.5 % (0.0-3.0); HEMATOCRIT 40.7 % (42.0-52.0); HEMOGLOBIN 13.7 gm/dL (14.0-18.0); LYMPHOCYTES 21.2 % (24.0-44.0); MCH 29.2 pg (26.0-34.0); MCHC 33.6 g/dL (28.0-37.0); PLATELET COUNT 188 thou/uL (150-400); POLYS 66.6 % (36.0-66.0); RBC 4.68 mil/uL (4.50-6.00); RDW 14.2 % (10.5-14.5); WBC 8.3 thou/uL (4.0-11.0)
[2017-04-16 10:35] LABS: MANUAL DIFF NO
[2017-04-16 10:43] LABS: ALBUMIN 2.5 g/dL (3.4-5.0); CALCIUM 9.1 mg/dL (8.5-10.1); CREATININE 1.1 mg/dL (0.7-1.3); POTASSIUM 3.6 mmol/L (3.5-5.1); TOTAL BILIRUBIN 0.6 mg/dL (<0.1-1.0); TOTAL PROTEIN 6.5 g/dL (6.4-8.2)
[2017-04-16 15:30] VITALS: BP 137/83
[2017-04-16 17:56] LABS: URINE BILIRUBIN NEGATIVE (Negative); URINE BLOOD 2+ (Negative); URINE COLOR YELLOW; URINE GLUCOSE-RANDOM* 1+ (Negative); URINE KETONES NEGATIVE (Negative); URINE LEUKOCYTES-REFLEX NEGATIVE (Negative); URINE PROTEIN (DIPSTICK) 2+ (Negative); URINE SPECIFIC GRAVITY 1.025 (1.003-1.035)
[2017-04-16 18:08] LABS: FINE GRANULAR CASTS 0-3 Few /LPF (None Seen); HYALINE CASTS 0-3 Few /LPF (None Seen); SQUAMOUS 0-3 Few /LPF (0-3)
[2017-04-16 18:09] LABS: CRYSTALS None Seen /LPF (None Seen); URINE WBC-REFLEX 0-5 Rare /HPF (0-5)
[2017-04-17 05:07] VITALS: BP 140/67
[2017-04-17 16:39] VITALS: BP 146/75
[2017-04-17 21:00] VITALS: BP 149/78
[2017-04-18 05:26] VITALS: BP 145/75
[2017-04-18 08:00] VITALS: BP 202/88
[2017-04-18 13:30] VITALS: BP 154/88
[2017-04-18 15:30] VITALS: BP 169/84
[2017-04-18 20:26] VITALS: BP 104/44
[2017-04-19 04:07] VITALS: BP 140/73
[2017-04-19 11:34] LABS: HEMATOCRIT 37.7 % (42.0-52.0); HEMOGLOBIN 12.7 gm/dL (14.0-18.0); MCH 29.4 pg (26.0-34.0); MCHC 33.6 g/dL (28.0-37.0); MCV 87.4 fL (80.0-100.0); RBC 4.31 mil/uL (4.50-6.00); RDW 14.3 % (10.5-14.5); WBC 7.9 thou/uL (4.0-11.0)
[2017-04-19 11:44] LABS: CALCIUM 9.1 mg/dL (8.5-10.1); CREATININE 1.3 mg/dL (0.7-1.3); POTASSIUM 3.5 mmol/L (3.5-5.1)
[2017-04-19 16:15] VITALS: BP 167/75
[2017-04-20 05:27] VITALS: BP 161/99
[2017-04-20 15:30] VITALS: BP 152/89
[2017-04-21 05:24] VITALS: BP 149/71
[2017-04-21 14:50] VITALS: BP 148/94
[2017-04-22 03:33] VITALS: BP 138/72
[2017-04-22 06:00] LABS: ABSOLUTE NEUTROPHILS 5.2 thou/uL (1.4-8.2); BASOPHILS 0.8 % (0.0-2.0); EOSINOPHILS 6.6 % (0.0-3.0); HEMATOCRIT 36.3 % (42.0-52.0); HEMOGLOBIN 12.1 gm/dL (14.0-18.0); LYMPHOCYTES 22.3 % (24.0-44.0); MCH 29.5 pg (26.0-34.0); MCHC 33.5 g/dL (28.0-37.0); MCV 88.1 fL (80.0-100.0); MONOCYTES 5.9 % (1.0-8.0); PLATELET COUNT 136 thou/uL (150-400); POLYS 64.4 % (36.0-66.0); RBC 4.12 mil/uL (4.50-6.00); RDW 14.3 % (10.5-14.5); WBC 8.1 thou/uL (4.0-11.0)
[2017-04-22 06:11] LABS: CALCIUM 8.6 mg/dL (8.5-10.1); CREATININE 1.1 mg/dL (0.7-1.3); MAGNESIUM 1.7 mg/dL (1.8-2.4); POTASSIUM 3.4 mmol/L (3.5-5.1)
[2017-04-22 06:18] LABS: MANUAL DIFF NO
[2017-04-22 18:20] VITALS: BP 149/89
[2017-04-22 20:20] VITALS: BP 179/100
[2017-04-22 22:00] VITALS: BP 142/92
[2017-04-23 04:50] VITALS: BP 150/76
[2017-04-23 04:54] LABS: POTASSIUM 3.5 mmol/L (3.5-5.1)
[2017-04-23 16:00] VITALS: BP 142/76
[2017-04-23 20:00] VITALS: BP 129/68
[2017-04-24 03:40] VITALS: BP 128/70
[2017-04-24 16:35] VITALS: BP 172/91
[2017-04-25 04:48] VITALS: BP 140/71
[2017-04-25 16:00] VITALS: BP 138/72
[2017-04-25 20:00] VITALS: BP 128/74
[2017-04-26 05:24] VITALS: BP 136/72
[2017-04-26 16:00] VITALS: BP 138/74
[2017-04-27 05:55] VITALS: BP 145/87
[2017-04-27 06:45] LABS: CALCIUM 8.8 mg/dL (8.5-10.1); CREATININE 1.1 mg/dL (0.7-1.3); MAGNESIUM 1.7 mg/dL (1.8-2.4); POTASSIUM 3.4 mmol/L (3.5-5.1)
[2017-04-27 16:56] VITALS: BP 115/69
[2017-04-28 05:21] VITALS: BP 131/76
[2017-04-28 06:17] LABS: CALCIUM 8.9 mg/dL (8.5-10.1); CREATININE 1.1 mg/dL (0.7-1.3); MAGNESIUM 1.8 mg/dL (1.8-2.4); POTASSIUM 3.9 mmol/L (3.5-5.1)
[2017-04-28 16:00] VITALS: BP 118/69
[2017-04-29 04:33] VITALS: BP 125/67
[2017-04-29 07:20] VITALS: BP 138/69
[2017-04-29 15:56] VITALS: BP 118/67
[2017-04-30 04:20] VITALS: BP 133/63
[2017-04-30 15:30] VITALS: BP 116/71
[2017-05-01 05:08] VITALS: BP 144/91
[2017-05-01 17:00] VITALS: BP 120/59
[2017-05-01 17:33] LABS: URINE BILIRUBIN NEGATIVE (Negative); URINE BLOOD NEGATIVE (Negative); URINE COLOR YELLOW; URINE GLUCOSE-RANDOM* NEGATIVE (Negative); URINE KETONES NEGATIVE (Negative); URINE LEUKOCYTES-REFLEX NEGATIVE (Negative); URINE PROTEIN (DIPSTICK) NEGATIVE (Negative); URINE UROBILINOGEN 0.2 E.U./dl (0.2-1.0)
[2017-05-02 04:02] VITALS: BP 117/53
[2017-05-02 16:06] VITALS: BP 100/55
[2017-05-03 04:00] VITALS: BP 118/62
[2017-05-03 08:00] VITALS: BP 107/69
[2017-05-03 15:44] VITALS: BP 125/61
[2017-05-03 16:00] VITALS: BP 125/61
[2017-05-04 05:30] VITALS: BP 126/67
[2017-05-04 14:14] VITALS: BP 154/80
[2017-05-04 15:33] VITALS: BP 99/65
[2017-05-04 21:00] VITALS: BP 113/68
[2017-05-05 05:47] VITALS: BP 112/71
[2017-05-05 16:00] VITALS: BP 115/60
[2017-05-05] MEDS ORDERED: FLOMAX0.4 MG PO (16:06)
[2017-05-06 06:41] VITALS: BP 115/61
[2017-05-06 09:02] VITALS: BP 116/69
== END 2017-05-06 09:53 | DRG 64 ==
PROVIDERS: Internal Medicine; Internal Medicine Endocrinology, Diabetes & Metabolism; Nurse Practitioner; Physical Medicine & Rehabilitation
DX: I63.9 Cerebral infarction, unspecified (principal); G93.40 Encephalopathy, unspecified; G81.91 Hemiplegia, unspecified affecting right dominant side; N17.9 Acute kidney failure, unspecified; R13.10 Dysphagia, unspecified; E11.9 Type 2 diabetes mellitus without complications; I10 Essential (primary) hypertension; I35.0 Nonrheumatic aortic (valve) stenosis; G31.84 Mild cognitive impairment of uncertain or unknown etiology; R47.01 Aphasia; F32.9 Major depressive disorder, single episode, unspecified; E78.5 Hyperlipidemia, unspecified; R33.9 Retention of urine, unspecified; R74.0 Nonspecific elevation of levels of transaminase and lactic acid dehydrogenase [LDH]; E87.6 Hypokalemia; E83.42 Hypomagnesemia; Z79.899 Other long term (current) drug therapy; Z87.891 Personal history of nicotine dependence; Z82.3 Family history of stroke; Z90.49 Acquired absence of other specified parts of digestive tract
CPT/HCPCS: 10092; 10112